=== PATIENT | female | born 1960 | race African-American/Black ===

== ENCOUNTER 2016-06-03 14:31 | Emergency (ER) | payer MEDICAID ==
[~2016-06-03] VITALS: Ht 165.1 cm; Wt 60.0 kg
[~2016-06-03 14:31] MED LIST: ENAL10TA PO; HYDR-523
[2016-06-03 14:38] VITALS: BP 118/74
== END 2016-06-03 21:25 | disposition left against medical advice (07) ==
LOC: ER 15:03
DX: Z53.21 Procedure and treatment not carried out due to patient leaving prior to being seen by health care provider (principal)